=== PATIENT | female | born 1980 ===

== ENCOUNTER 2018-04-14 19:11 | Emergency (ER) | payer OTHER ==
[~2018-04-14] VITALS: Ht 170.2 cm; Wt 68.0 kg
[~2018-04-14 19:11] MED LIST: COREG CR10 MG; DOLOGEN CAPLET1 TAB PO; IBUPROFEN800 MG PO; INDERAL LA80 MG; ORPH100T PO; SYNTHROID150 MCG; ZANTAC300 MG PO
== END 2018-04-14 22:08 | disposition home or self-care (01) ==
LOC: ER 19:11
DX: M54.5 Low back pain (principal)

== ENCOUNTER 2018-06-15 16:15 | Emergency (ER) | payer OTHER ==
[~2018-06-15] VITALS: Ht 170.2 cm; Wt 76.2 kg
== END 2018-06-15 21:01 | disposition home or self-care (01) ==
LOC: ER 16:15
DX: B34.9 Viral infection, unspecified (principal)